=== PATIENT | male | born 1965 | race Two or more races ===

== ENCOUNTER 2017-11-19 16:23 | Emergency (ER) | payer OTHER ==
[~2017-11-19] VITALS: Ht 170.2 cm; Wt 60.0 kg
[2017-11-19 16:26] VITALS: BP 108/82
[2017-11-19] MEDS ORDERED: CYCLOBENZAPRINE 10 MG TABLET ONE (18:25)
[2017-11-19] MEDS ORDERED: CYCLOBENZAPRINE 10 MG TABLET PO ONE (18:30)
[2017-11-19] MEDS ORDERED: methylPREDNISolone SOD SUCC 125 MG/2 ML IM ONE (18:30)
[2017-11-19] MEDS ORDERED: methylPREDNISolone SOD SUCC 125 MG/2 ML ONE (18:33)
== END 2017-11-19 18:50 | disposition home or self-care (01) ==
LOC: ED 18:44
DX: S16.1XXA Strain of muscle, fascia and tendon at neck level, initial encounter (principal); S40.012A Contusion of left shoulder, initial encounter; S20.212A Contusion of left front wall of thorax, initial encounter; W11.XXXA Fall on and from ladder, initial encounter; Y93.89 Activity, other specified; Y92.89 Other specified places as the place of occurrence of the external cause; Y99.8 Other external cause status; F17.210 Nicotine dependence, cigarettes, uncomplicated
CPT/HCPCS: 71046; 72125; 73030; 96372; 99284; J2930

== ENCOUNTER 2017-11-28 18:53 | Emergency (ER) | payer OTHER ==
[~2017-11-28] VITALS: Ht 170.2 cm; Wt 57.9 kg
[2017-11-28 18:54] VITALS: BP 120/81
[2017-11-28] MEDS ORDERED: KETOROLAC 30 MG/1 ML ONE (19:13)
[2017-11-28] MEDS ORDERED: DIAZEPAM 5 MG TABLET ONE (19:13)
[2017-11-28] MEDS ORDERED: DIAZEPAM 5 MG TABLET PO ONE (19:30)
[2017-11-28] MEDS ORDERED: KETOROLAC 30 MG/1 ML IM ONE (19:30)
== END 2017-11-28 19:58 | disposition home or self-care (01) ==
LOC: ED 19:06
DX: S16.1XXA Strain of muscle, fascia and tendon at neck level, initial encounter (principal); W11.XXXA Fall on and from ladder, initial encounter; Y93.89 Activity, other specified; Y92.89 Other specified places as the place of occurrence of the external cause; Y99.8 Other external cause status
CPT/HCPCS: 96372; 99283; J1885